=== PATIENT | male | born 1990 | race Caucasian/White ===

== ENCOUNTER 2020-10-12 14:16 | Emergency (ER) | payer OTHER ==
[2020-10-12 14:34] VITALS: BP 106/67; PULSE 63; TEMP 97.7; BMI 20.7
== END 2020-10-12 19:15 | disposition home or self-care (01) ==
LOC: JER 14:16
DX: R05 Cough (principal)
CPT/HCPCS: 71046-TC-FY; 99284-25; C9803; U0003; U0005

== ENCOUNTER 2023-08-17 20:12 | Emergency (ER) | payer OTHER ==
[2023-08-17 20:20] VITALS: BP 115/78; PULSE 73; RESP 18; TEMP 98.7; BMI 18.8
[2023-08-17] MEDS ORDERED: ACETAMINOPHEN 500 MG TABLET (FP) ONE (21:02)
[2023-08-17] MEDS: ACETAMINOPHEN 500 MG TABLET (FP) PO ONE (21:11)
[2023-08-17 21:14] LABS: BASO % 0.3 % (0-2.0); HEMATOCRIT 40.9 % (35.4-49); LYMPH % 16.2 % (8-40); MCH 31.9 pg (25.7-33.7); MCHC 34.1 g/dl (32.0-35.9); MEAN CELL VOLUME 93.4 fl (80-96); MONO % 7.5 % (3.8-10.2); PLATELET COUNT 241 10^3/uL (134-434); RBC 4.38 M/mm3 (4.00-5.60); RDW 12.9 % (11.9-15.9)
[2023-08-17 21:29] LABS: INR 1.04 (0.83-1.09); PROTHROMBIN TIME (PATIENT) 11.7 SEC (9.7-13.0)
[2023-08-17 21:32] LABS: ACTIVATED PTT 33.8 SECONDS (25.2-36.5)
[2023-08-17 21:38] LABS: POTASSIUM 3.8 mmol/L (3.5-5.1)
[2023-08-17 21:40] LABS: BLOOD UREA NITROGEN 9.4 mg/dL (7-18); CALCIUM 9.6 mg/dL (8.5-10.1); MAGNESIUM 2.1 mg/dL (1.8-2.4)
[2023-08-17 21:43] LABS: CREATININE 0.9 mg/dL (0.55-1.3)
[2023-08-17 21:45] LABS: BILIRUBIN,TOTAL 0.5 mg/dL (0.2-1); TOT PROT 7.4 g/dl (6.4-8.2)
[2023-08-17] MEDS: KETOROLAC TROMETHAMINE 15 MG/ML VIAL IVPUSH ONE (22:17)
[2023-08-17] MEDS ORDERED: KETOROLAC TROMETHAMINE 30 MG/1 ML VIAL ONE (22:18)
[2023-08-17] MEDS: KETOROLAC TROMETHAMINE 30 MG/1 ML VIAL IM ONE (22:25)
[2023-08-17 22:38] LABS: HIV INTERPRETATION NEGATIVE (NEGATIVE)
== END 2023-08-17 22:30 | disposition home or self-care (01) ==
LOC: JER 20:12
DX: R07.81 Pleurodynia (principal); R05.9 Cough, unspecified; R50.9 Fever, unspecified; R53.81 Other malaise; Z20.822 Contact with and (suspected) exposure to COVID-19
CPT/HCPCS: 0241U-QW; 36415; 71046-TC-FY; 80053; 83735; 84484; 85025; 85379; 85610; 85730; 87389; 93005; 93010; 99285-25